=== PATIENT | female | born 1955 | race Caucasian/White ===

== ENCOUNTER 2016-12-31 15:58 | Inpatient (IN) | payer MEDICAID ==
[~2016-12-31] VITALS: Ht 162.6 cm; Wt 79.1 kg
[~2016-12-31 15:58] MED LIST: FLUO-125 PO; LIDO5DIS21 TOP; LORA-622 PO
[2016-12-31] MEDS ORDERED: SODIUM CHLORIDE 0.9% 1,000 ML IV ONE (17:45)
[2016-12-31 17:54] LABS: Albumin 3.8 g/dL (3.4-5.0); Anion Gap 12 (5-15); Aspartate Aminotransferase 21 U/L (15-37); BUN/Creatinine Ratio 17.2; Blood Urea Nitrogen 15 mg/dL (7-18); Carbon Dioxide 21 mmol/L (21-32); Chloride 110 mmol/L (98-107); GFR African American 85 mL/min; GFR Non-African American 71 mL/min; Glucose 81 mg/dL (74-106); Magnesium 2.1 mg/dL (1.6-2.6); Potassium 3.9 mmol/L (3.5-5.1); Sodium 143 mmol/L (136-145)
[2016-12-31 17:57] LABS: Alkaline Phosphatase 96 U/L (45-117); Bilirubin, Total 0.3 mg/dL (0.2-1.0); Total Protein 7.6 g/dL (6.4-8.2)
[2016-12-31 17:57] LABS: Urine RBC None Seen /hpf (0 - 4)
[2016-12-31 18:11] LABS: Urine Bilirubin Negative (Negative); Urine Blood Negative /uL (Negative); Urine Color Yellow (Yellow); Urine Glucose Normal (Normal); Urine Ketone Negative (Negative); Urine Nitrite Negative (Negative); Urine Squamous Epithelial Cell FEW /hpf (<5); Urine Urobilinogen Normal (Negative)
[2016-12-31 18:37] LABS: Basophils # (auto) 0 uL; Basophils % (auto) 0.4 % (0.0-2.0); CONDITION Y; Eosinophils # (auto) 0.1 uL; Eosinophils % (auto) 0.9 % (0.0-7.0); Hematocrit 38.3 % (36.0-46.0); Hemoglobin 12.8 g/dL (12.2-16.2); Lymphocytes # (auto) 1.9 uL; Lymphocytes % (auto) 30.6 % (10.0-50.0); Mean Corpuscular Hemoglobin 29.8 pg (28.0-32.0); Mean Corpuscular Hgb Conc. 33.4 g/dL (32.0-36.0); Mean Corpuscular Volume 89.3 fL (80.0-100.0); Mean Platelet Volume 8.1 fL (7.4-10.4); Monocytes # (auto) 0.3 uL; Monocytes % (auto) 4.5 % (0.0-12.0); Neutrophils % (auto) 63.6 % (37.0-80.0); Platelet Count (auto) 271 10^3/uL (140-450); Red Cell Distribution Width 12.9 % (11.6-16.0); White Blood Cell 6.3 10^3/uL (4.4-10.8)
[2016-12-31] MEDS ORDERED: NITROGLYCERIN 0.4 MG SL TAB SL PRN (19:00)
[2016-12-31] MEDS ORDERED: PROMETHAZINE HCL 25 MG/ML 1ML IV PRN (19:00)
[2016-12-31] MEDS ORDERED: MORPHINE SULF INJ 2 MG/ML SYRINGE 1ML IV PRN ×2 (19:00)
[2016-12-31] MEDS ORDERED: LACTULOSE 20Gm/30ML SOLN PO PRN (19:00)
[2016-12-31] MEDS ORDERED: HYDROcodone-ACET 5/325MG TAB PO PRN (19:00)
[2016-12-31] MEDS ORDERED: TEMAZEPAM 15 MG CAP PO PRN (19:00)
[2016-12-31] MEDS ORDERED: LORazepam 0.5 MG TAB PO PRN (19:00)
[2016-12-31] MEDS: SODIUM CHLORIDE 0.9% 1,000 ML IV SCH ×2 (19:07→21:18)
[2016-12-31] MEDS ORDERED: ASPirin 81 mg TAB PO ONE (19:15)
[2016-12-31] MEDS: ENOXAPARIN SOD 40 MG/0.4 ML SYRINGE SC SCH (19:30)
[2016-12-31 21:37] VITALS: BP 129/60
[2017-01-01 04:57] VITALS: BP 130/72
[2017-01-01 08:41] VITALS: BP 133/60
[2017-01-01] MEDS: ENOXAPARIN SOD 40 MG/0.4 ML SYRINGE SC SCH (09:34)
[2017-01-01] MEDS: ASPirin 81 mg TAB PO SCH (09:34)
[2017-01-01 13:02] VITALS: BP 125/70
[2017-01-01 16:21] VITALS: BP 126/70
[2017-01-01 21:42] VITALS: BP 121/83
[2017-01-02 04:57] VITALS: BP 109/66
[2017-01-02] MEDS: SODIUM CHLORIDE 0.9% 1,000 ML IV SCH ×2 (06:03→09:45)
[2017-01-02 06:07] LABS: Basophils # (auto) 0 uL; Basophils % (auto) 0.4 % (0.0-2.0); CONDITION Y; Eosinophils # (auto) 0.1 uL; Eosinophils % (auto) 1.5 % (0.0-7.0); Hematocrit 40.1 % (36.0-46.0); Hemoglobin 13.5 g/dL (12.2-16.2); Lymphocytes % (auto) 36.2 % (10.0-50.0); Mean Corpuscular Hemoglobin 29.9 pg (28.0-32.0); Mean Corpuscular Hgb Conc. 33.8 g/dL (32.0-36.0); Mean Corpuscular Volume 88.7 fL (80.0-100.0); Monocytes # (auto) 0.3 uL; Monocytes % (auto) 6.5 % (0.0-12.0); Neutrophils % (auto) 55.4 % (37.0-80.0); Platelet Count (auto) 277 10^3/uL (140-450); Red Cell Distribution Width 13.3 % (11.6-16.0); White Blood Cell 5.4 10^3/uL (4.4-10.8)
[2017-01-02 06:28] LABS: Albumin 3.7 g/dL (3.4-5.0); BUN/Creatinine Ratio 17.6; Potassium 4.2 mmol/L (3.5-5.1)
[2017-01-02 06:30] LABS: Bilirubin, Total 0.4 mg/dL (0.2-1.0); Total Protein 7.3 g/dL (6.4-8.2)
[2017-01-02 08:47] VITALS: BP 130/72
[2017-01-02] MEDS: ASPirin 81 mg TAB PO SCH (09:45)
[2017-01-02] MEDS: ENOXAPARIN SOD 40 MG/0.4 ML SYRINGE SC SCH (09:45)
[2017-01-02 13:00] VITALS: BP 120/72
[2017-01-02 16:13] VITALS: BP 125/71
[2017-01-02] MEDS: ACETAMINOPHEN 500 MG TAB PO PRN (20:52)
[2017-01-02 21:54] VITALS: BP 127/75
[2017-01-03] MEDS: SODIUM CHLORIDE 0.9% 1,000 ML IV SCH ×2 (00:12→14:24)
[2017-01-03 04:51] VITALS: BP 140/70
[2017-01-03 08:00] VITALS: BP 137/72
[2017-01-03 09:23] VITALS: BP 137/72
[2017-01-03] MEDS: ENOXAPARIN SOD 40 MG/0.4 ML SYRINGE SC SCH (10:00)
[2017-01-03] MEDS: ASPirin 81 mg TAB PO SCH (10:00)
[2017-01-03 12:00] VITALS: BP 129/70
[2017-01-03] MEDS ORDERED: IOHEXOL 350 MG/ML 100ML IJ ONE (13:25)
[2017-01-03] MEDS ORDERED: METOPROLOL TARTRATE 1MG/1ML-5ML VIAL IV ONE (13:29)
[2017-01-03] MEDS ORDERED: NITROGLYCERIN 0.4 MG SL TAB SL ONE (13:30)
[2017-01-03] MEDS: ACETAMINOPHEN 500 MG TAB PO PRN (14:51)
[2017-01-03 17:00] VITALS: BP 106/58
[2017-01-03 17:43] VITALS: BP 106/58
== END 2017-01-03 19:00 | disposition home or self-care (01) | DRG 111 ==
LOC: EDBD 15:58 → ER 16:13 → TELE 16:14 → TELE-CENTR 21:37
PROVIDERS: ADMIT Internal Medicine; ATTEND Internal Medicine
DX: H81.10 Benign paroxysmal vertigo, unspecified ear (principal); I10 Essential (primary) hypertension; R00.1 Bradycardia, unspecified; J45.909 Unspecified asthma, uncomplicated; F32.9 Major depressive disorder, single episode, unspecified; F41.9 Anxiety disorder, unspecified; Z80.0 Family history of malignant neoplasm of digestive organs; Z82.3 Family history of stroke; Z82.49 Family history of ischemic heart disease and other diseases of the circulatory system; Z87.442 Personal history of urinary calculi; Z90.710 Acquired absence of both cervix and uterus; Z90.5 Acquired absence of kidney; Z71.89 Other specified counseling
CPT/HCPCS: 36415; 71020; 75574; 80053; 80061; 80307; 81001; 82550; 83735; 84443; 84484; 85025; 85652; 86141; 93005; 93306; 96360